=== PATIENT | female | born 1970 | race Caucasian/White ===

== ENCOUNTER 2021-12-15 15:01 | Outpatient (CLI) | payer BC, SELFPAY ==
[2021-12-15 22:11] LABS: C Reactive Protein* 1.3 mg/dL (0.5-1.0)
== END 2021-12-15 15:02 | disposition home or self-care (01) ==
PROVIDERS: PCP Physician Assistant Medical; Visit Provider Nurse Practitioner Family
DX: R59.9 Enlarged lymph nodes, unspecified (principal)
CPT/HCPCS: 86140

== ENCOUNTER 2021-12-28 14:15 | Outpatient (CLI) | payer BC, SELFPAY ==
[2021-12-28 22:28] LABS: C Reactive Protein* 1.3 mg/dL (0.5-1.0)
== END 2021-12-28 14:16 | disposition home or self-care (01) ==
LOC: LKVREF 14:16
PROVIDERS: PCP Physician Assistant Medical; Visit Provider Physician Assistant Medical
DX: R59.9 Enlarged lymph nodes, unspecified (principal)
CPT/HCPCS: 86140

== ENCOUNTER 2022-05-28 10:33 | Outpatient (CLI) | payer BC, SELFPAY ==
[2022-05-28 16:46] LABS: Chlamydia DNA Amplified* NOT DETECTED (No Detected); GC DNA Amplified* NOT DETECTED (No Detected)
== END 2022-05-28 10:34 | disposition home or self-care (01) ==
PROVIDERS: PCP Physician Assistant Medical; Visit Provider Physician Assistant Medical
DX: Z00.00 Encounter for general adult medical examination without abnormal findings (principal); E78.5 Hyperlipidemia, unspecified; Z13.29 Encounter for screening for other suspected endocrine disorder; Z13.1 Encounter for screening for diabetes mellitus; Z11.3 Encounter for screening for infections with a predominantly sexual mode of transmission
CPT/HCPCS: 0353U; 80061; 82947; 84443; 86140; 87491; 87591

== ENCOUNTER 2022-06-04 09:52 | Outpatient (CLI) | payer BC, SELFPAY ==
--- NOTE | 2022-06-04 10:45 | CRLHL7_ITS ---
For Patients: As a result of the Cures Act, medical imaging exams and procedure reports are released immediately into your electronic medical record. You may view this report before your referring provider. If you have questions, please contact your health care provider. DIGITAL DIAGNOSTIC BILATERAL MAMMOGRAM USING TOMOSYNTHESIS AND COMPUTER-AIDED DETECTION LEFT BREAST ULTRASOUND CLINICAL HISTORY: LEFT breast lump. COMPARISON: 01/01/2020, 12/25/2018. TECHNIQUE: Digital BILATERAL mammogram in four projections. Tomosynthesis and CAD utilized. Real-time ultrasound imaging of LEFT breast with imaging documentation. BREAST COMPOSITION: There are areas of scattered fibroglandular density. FINDINGS: 3D CC/MLO BILATERAL mammogram images submitted. No suspicious masses or architectural destruction. Incidental intramammary lymph node LEFT breast. No suspicious calcifications. Targeted LEFT breast ultrasound performed at 6 o`clock 3 cm from the nipple. In this location there is normal breast tissue. No fibrocystic change or mass. IMPRESSION: No evidence of malignancy. Negative BILATERAL mammograms and targeted LEFT breast ultrasound. RECOMMENDATIONS: Annual BILATERAL screening mammography. Results and recommendations discussed with the patient. BI-RADS Category 2: Benign A lay language report of this examination will be provided to the patient. Dictated by Mian Dixon MD @ 06/04/2022 12:07:42 PM jj/Dictated by: Mian Dixon MD @ 06/04/2022 12:07:00 PM (Electronically Signed)
--- NOTE | 2022-06-04 11:15 | CRLHL7_ITS ---
For Patients: As a result of the Cures Act, medical imaging exams and procedure reports are released immediately into your electronic medical record. You may view this report before your referring provider. If you have questions, please contact your health care provider. PLEASE SEE DIGITAL DIAGNOSTIC BILATERAL MAMMOGRAM PERFORMED SAME DAY CRL:[email or web address] newsome/Dictated by: Mian Dixon MD @ 06/04/2022 12:07:00 PM (Electronically Signed)
== END 2022-06-04 09:53 | disposition home or self-care (01) ==
LOC: MAMMO 09:53
PROVIDERS: PCP Physician Assistant Medical; Visit Provider Physician Assistant Medical
DX: N63.20 Unspecified lump in the left breast, unspecified quadrant (principal)
CPT/HCPCS: 76642; 77066; G0279